=== PATIENT | male | born 1945 | race Caucasian/White ===

== ENCOUNTER 2017-01-07 12:07 | Inpatient (IN) | payer OTHER, MEDICARE ==
--- NOTE | ~2017-01-07 | HP ---
History And Physical [place] [address] [facility] [place]. [address] NAME: AMY MONROE : 49 STATUS : ADM IN PAT#: [id number] AGE: 71 ADM/REG DATE : 01/07/17 MR#: [id number] REPORT SERV DATE: 01/07/17 DICTATED BY: DELIO SHIN DATE: 01/07/17 REPORT STATUS : Draft TRANSCRIBED BY: MODFausto DATE: 01/07/17 DATE OF ADMISSION: 01/07/2017 CHIEF COMPLAINT: Syncope with low heart rate and blood pressure. HISTORY OF PRESENT ILLNESS: The patient is a very pleasant 71-year-old male with past medical history of coronary artery disease, chronic narcotic dependence with paroxysmal AFib, hypertension, COPD, questionable Parkinson, chronic back pain with multiple back surgeries, who was recently discharged approximately 48 hours ago under Cardiology Service for NSTEMI, requiring stent placement. These records are currently not available. The patient was doing well at home. However, today when he was with his family to get breakfast, although he is ambulatory to do ADLs. He had syncope episode and hit his head. Upon arrival, the patient was found to be hypotensive with systolics in the 60s, heart rates in the 40s to 50s. Family reports that he is typically hypertensive, although he does have occasional episodes where his heart rate is low. [facility] better control over the last few months. The patient did not have any new blood pressure med adjustments and discharged only new medication was Plavix family quite recalls. Additionally, the patient is noted to be in mild renal failure, symptoms of syncope, low blood pressure and heart rate was an isolated event today, but is still persistent, although blood pressure is improving with normal saline bolus and Decadron. The patient is still bradycardic. Denies any acute chest pain. Currently, symptoms are moderate. No pain radiating symptoms. No nausea, vomiting, diarrhea, fever, or chills. Symptoms are worsened with standing up and positional changes, relieved by lying down. Symptoms are slightly better and after the patient was given dopamine and atropine in EMS. REVIEW OF SYSTEMS: For other additional 10-point review of systems negative for that noted in the HPI. PAST MEDICAL HISTORY: Coronary artery disease with CABG history by Dr. 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 PAST SURGICAL HISTORY: CABG, multiple back surgeries, tonsillectomy, right knee surgery, appendectomy, and recent stent approximately 48 hours ago per family. SOCIAL HISTORY: with two children. Disabled secondary to back, . Retired corporate claims examiner. Quit smoking over 20 years ago. Rare alcohol. No illicits. With good family support at bedside. FAMILY HISTORY: Heart attack. ALLERGIES: TRAZODONE. HOME MEDICATIONS: Aspirin, atorvastatin, vitamin D, Plavix, docusate, Aricept, Neurontin, hydralazine, [place], Prinivil, Ativan, metoprolol, Remeron, MS Contin, Centrum, Prilosec, Risperdal, Zanaflex. History And Physical [address] [address] NAME: AMY MONROE : 47 STATUS : ADM IN [facility]#: [id number] AGE: 71 ADM/REG DATE : 01/07/17 MR#: [id number] REPORT SERV DATE: 01/07/17 DICTATED BY: DELIO SHIN DATE: 01/07/17 REPORT STATUS : Draft TRANSCRIBED BY: MIGUEL DATE: 01/07/17 PHYSICAL EXAMINATION: VITAL SIGNS: The patient's initial blood pressure in emergency room 79/50, has improved up to 114/54, temperature 97.4, pulse was initially 66, has been continuously in the 40s, respirations 18, O2 sats 96%, but requiring 5 L. GENERAL: No acute distress. Resting. EYES: No scleral icterus. EOMI. ENT: Nares patent. Tongue midline, but dry mucous membranes. RESPIRATORY: Clear to auscultation. No wheezes, rales. CV: Bradycardic. Mild systolic murmur. No rubs. GI: Soft, nontender, nondistended. Bowel sounds positive. : Deferred. MUSCULOSKELETAL: Moves extremities. SKIN: Warm and dry. Does have mild early bruise in right forehead. LYMPH: No cervical or supraclavicular lymphadenopathy. HEME: Mild early petechiae, bruise on forehead. NEURO: Alert and oriented. Moves all extremities. PSYCH: Appropriate mood and affect, pleasant. LABORATORY DATA: Cortisol 14.3, random. Procalcitonin negative. BUN and creatinine 33 and 1.85; however, was recently 15 and 1.11, potassium 3.6. Troponin 0.07, was previously up to 0.27. UDS noted for benzos and opioids. Portable chest no acute issues, lactate 2. Urinalysis grossly within normal limits. Brain without contrast. No acute processes. CBC: WBC count 10.9, H and H 14.2 and 42.3, platelets 181. INR 1.1. EKG normal sinus rhythm, rate of 65, prolonged QT at 472. ASSESSMENT: 1. Hypotension with syncope. 2. Recent non-ST elevation myocardial infarction. 3. Acute kidney injury. 4. Symptomatic bradycardia. 5. Hypoxia. 6. Questionable seizure history. 7. Chronic narcotic dependence with chronic pain syndrome. 8. Depression, anxiety history. PLAN: 1. For hypotension with syncope the patient was noted blood pressures in the 60s at home with bradycardia was given, atropine and dopamine in EMS arrival. Additionally has been bolused in the emergency room along with Decadron. Blood pressure has started to show improvement, but heart rate still remains fairly labile. The patient is typically hypertensive, has not had recent increase in blood pressure medications. Has actually been having decrease in blood pressure medications, still symptomatic. The patient in the presence of MARCY likely which is secondary to the hypotension is likely retaining additional medications. We will hold NOMAN inhibitor. We will hold additional hydralazine and metoprolol with holding parameters on pain medications until more stable. We will check a.m. cortisol. The patient did get Decadron in the emergency History And Physical [address] [address] NAME: AMY MONROE : 49 STATUS : ADM IN PAT#: [id number] AGE: 71 ADM/REG DATE : 01/07/17 MR#: [id number] REPORT SERV DATE: 01/07/17 DICTATED BY: DELIO SHIN DATE: 01/07/17 REPORT STATUS : Draft TRANSCRIBED BY: MIGUEL DATE: 01/07/17 room. If abnormal, may require stim test, the patient has had chronic debility and pain syndrome, multiple medications. 2. Recent NSTEMI, on Plavix and aspirin. We will notify Cardiology of repeat admission as possibility could be cardiogenic cause for syncope, hypotension, bradycardia, although the patient denies any chest pain or discomfort. Troponins are actually slightly better than most recent discharge. 3. MARCY, IV fluids. Blood pressure control. Differential includes hypotension, which is most likely etiology along with possible NOMAN inhibitor, but the patient did receive stent and could be component of VASYL. I will monitor with gentle IV fluids. If not improved, may require Renal consult. We will monitor clinically. 4. Bradycardia, hold beta-reji, was on 100 mg b.i.d. metoprolol. Previously before this prior to most recent admission was as high as 200 mg for blood pressure control. Holding parameters the patient has had bradycardia episodes even prior to admission. Has been given atropine, which is likely cause for normal sinus rhythm of 65, but is currently back down to the 40s. 5. Hypoxemia, follow up chest x-ray in a.m. 6. Seizure history, not on any medications. We will do seizure precautions. 7. Chronic narcotic dependence, hold p.r.n. 8. Depression, anxiety continue p.r.n. I have discussed the case thoroughly with ER team due to the patient's bradycardia, MARCY, labile blood pressure with requirements of atropine, dopamine, boluses, and Decadron. Additionally with recent NSTEMI with stent placement approximately 48 hours ago, possible adrenal component and hypoxemia. We will monitor in IMCU, although if vital signs stabilize may be able to be transferred either late tonight or early tomorrow morning based on clinical condition. All questions answered. The patient's family at bedside. Slightly guarded condition noted, discussed with family who is agreeable with plan. DDN/MODL Delio Shin MD / [id number] CC: Alyssa Holcomb Tracy
--- NOTE | ~2017-01-07 | CN ---
Consultation Report [facility] [address] [place]. [address] NAME: AMY MONROE : 49 STATUS : ADM IN PAT#: [id number] AGE: 71 ADM/REG DATE : 01/07/17 MR#: [id number] REPORT SERV DATE: 01/07/17 DICTATED BY: PRESLEY HEDRICK DATE: 01/07/17 REPORT STATUS : Draft TRANSCRIBED BY: MODL DATE: 01/07/17 CARDIOLOGY CONSULTATION DATE OF CONSULTATION: 01/07/2017 REASON FOR CONSULTATION: Hypotension and syncope. HISTORY OF PRESENT ILLNESS: The patient is a pleasant 71-year-old gentleman, with known history of coronary artery disease. He was recently admitted on Sunday with complaints of chest discomfort. He underwent cardiac catheterization, revealing an RCA lesion, status post stent placement by Dr. Rodriguez. He did well and went home on Sunday. Today, he awoke from sleep, was going to go get breakfast, became dizzy, lightheaded, and then passed out. He quickly regained consciousness, he had a normal sensorium. He presented to the emergency room where is found to be mildly bradycardic with heart rate of 50 beats per minute, and blood pressure between 70 and 80 systolic, diastolic of 50. He received 2 L of IV fluids in the emergency room. His beta reji dose which was metoprolol 100 mg p.o. b.i.d., is being reduced to 25 b.i.d. or held entirely depending on his systolic blood pressure and heart rate. He is afebrile. PAST MEDICAL HISTORY: Notable for coronary artery disease, status post CAB in 2012, history of postoperative atrial fibrillation, history of recent stent, with chest pain, and non- STEMI, with stent to the RCA, history of chronic pain syndrome, the patient takes home narcotic medications, history of COPD, history of tobacco, and alcohol abuse. HOME MEDICATIONS: Hydrocodone, APAP, lisinopril, Ativan, metoprolol 100 mg p.o. b.i.d., Remeron, MS Contin, Prilosec, Risperdal, and Zanaflex. FAMILY HISTORY: Noncontributory. Negative for premature coronary artery disease. SOCIAL HISTORY: Tobacco and alcohol abuse. Use of chronic narcotic agents for chronic pain. REVIEW OF SYSTEMS: As noted above. All other systems reviewed and negative. PHYSICAL EXAMINATION: VITAL SIGNS: Blood pressure of currently at 110/70, his pulse is currently 52, and respirations 16. GENERAL: Well developed, well nourished. HEENT: No icterus. Good dentition. NECK: Supple. No masses or thyromegaly LUNGS: Breathing comfortably. No rales or wheezes. COR: Normal S1, S2. No S3 or S4. No murmurs, clicks, rubs. No JVD ABD: Soft, nondistended, nontender, no hepatosplenomegaly. EXT: No clubbing, cyanosis or edema. Peripheral pulses 2+ or equal bilaterally. Consultation Report [address] [place]. [address] NAME: AMY MONROE : 49 STATUS : ADM IN [facility]#: [id number] AGE: 71 ADM/REG DATE : 01/07/17 MR#: [id number] REPORT SERV DATE: 01/07/17 DICTATED BY: PRESLEY HEDRICK DATE: 01/07/17 REPORT STATUS : Draft TRANSCRIBED BY: MIGUEL DATE: 01/07/17 SKIN: Warm and dry. No visible lesions. MS: Chest wall without deformity, no obvious clavicular fractures. NEURO/PSYCH: Oriented X3. No anxiety or depression. DIAGNOSTIC DATA: EKG shows sinus rhythm, heart rate 65 beats per minute. Nonspecific T-wave abnormalities in the inferior leads. Nonspecific in the lateral precordial leads as well. No evidence for ischemia or infarction. LABORATORY DATA: White count of 10.9, hematocrit 42, platelet count 181. Electrolytes within normal limits. Creatinine of 33, with a BUN of 1.85. TSH was 1.16. Cortisol is pending. IMPRESSION: Episode of syncope with hypotension. This is likely multifactorial. The patient takes multiple pain medications and other medications that may reduce his blood pressure. He also takes high dose beta reji. He had a recent cardiac stent, this is not appear to be consistent with myocardial ischemia. The patient is denying any chest pain. There is no evidence for acute ischemia on his EKG. His hemoglobin is within normal limits. He has responded to IV hydration. His heart rate is increasing. Again, I believe the bradycardia that he does have is out of proportion to the level of hypotension on admission, and is less likely to be a direct result of the bradycardia. Regardless however, I would recommend trying to reduce the patient's beta reji dose. He is currently taking metoprolol 100 mg twice a day. We are going to try to reduce this to 25 mg twice a day, but if his heart rate is less than 60 or systolic blood pressure is under 100, we will hold a dose entirely. He will continue on his aspirin and Plavix for his recent RCA stent placement. We will continue to monitor both his heart rates and blood pressure carefully. COLLIN/MODL Presley Hedrick M.D. / [id number] CC: Alyssa Holcomb TRACY
--- NOTE | ~2017-01-07 | DS ---
Discharge Summary [place] [address] [place]. [address] NAME: AMY MONROE : 49 STATUS : DIS IN PAT#: [id number] AGE: 71 ADM/REG DATE : 01/07/17 MR#: [id number] REPORT SERV DATE: 01/11/17 DICTATED BY: DATE: REPORT STATUS : Draft TRANSCRIBED BY: MODL DATE: 01/10/17 ADMISSION DATE: 01/07/2017 DISCHARGE DATE: 01/10/2017 DISCHARGE DIAGNOSES: 1. Hypotension. 2. Syncope secondary to hypotension. 3. Chronic obstructive pulmonary disease. 4. Chronic pain syndrome. 5. Gzo-[id number] elevation myocardial infarction, 01/04/2017. 6. Anxiety. 7. Hypertension. 8. Noncompliance with lab draws. CONSULTATION: Cardiology, Dr. Alcala. PROCEDURES AND IMAGIN. 01/07/2017, CT of the brain without contrast showed stable moderate cerebral atrophy without acute intracranial process. 2. 01/07/2017, portable chest x-ray showed no acute cardiac decompensation. HOSPITAL COURSE: The patient is a very pleasant 71-year-old male with multiple comorbidities. Please see H and P by Dr. Olman Ferris on 01/07/2017. The patient had recently been discharged 48 hours ago for a non-STEMI, which required stent placement and was found hypotensive. In discussion with the patient, the patient's heart rate normally is in the 50s and 60s. The patient's orthostatic blood pressures have been within normal limits, lying down 150/82, sitting 152/88, standing 162/92, heart rate has been from 52-65. Please see labs upon admission and urine drug screen. The patient has had negative blood cultures during his stay. His cortisol level was 14.3. The patient's beta blockers have been decreased from 100 mg b.i.d. to 25 mg b.i.d. The patient did have a urine drug screen that was positive for benzodiazepines and opiates, and the patient is on chronic pain medications. I started care of this patient on 01/09/2017. Please see consultation note by Dr. Alcala on 01/07/2017. Throughout his hospitalization, the patient has denied any complaint of lightheadedness or vertigo and has had no difficulty with balance. PHYSICAL EXAMINATION: VITAL SIGNS: Blood pressure 174/98, temperature 96.8, heart rate is 50, O2 saturation is 97% on room air. HEENT: Head is atraumatic, normocephalic. Pupils are equal, round, and reactive to light. Sclerae are clear and nonicteric. Good dentition. NECK: Supple with no palpable lymphadenopathy or thyromegaly. Neck veins are flat. CARDIAC: The patient is in a slow regular rhythm in the 50s. LUNGS: Lung sounds are clear to auscultation with normal respiratory effort. GI: Abdomen is soft and nontender with active bowel sounds in all four quadrants and no palpable organomegaly. Last bowel movement was 01/08/2017. EXTREMITIES: No significant edema, clubbing, or cyanosis. Pulses are present and palpable Discharge Summary [address] [address] NAME: AMY MONROE : 49 STATUS : DIS IN PAT#: [id number] AGE: 71 ADM/REG DATE : 01/07/17 MR#: [id number] REPORT SERV DATE: 01/11/17 DICTATED BY: DATE: REPORT STATUS : Draft TRANSCRIBED BY: MODL DATE: 01/10/17 bilaterally. MUSCULOSKELETAL: The patient moves all extremities x4. He is ambulatory without assistance. SKIN: Skin is warm and dry with normal color and turgor. NEURO/PSYCH: The patient is alert and oriented x3, pleasant, cooperative. Cranial nerves II through XII are grossly intact. DISCHARGE MEDICATIONS: Aspirin 81 mg daily, atorvastatin 40 mg daily, Clopidogrel 75 mg daily, vitamin D 1000 units twice daily, docusate sodium 100 mg twice daily, Aricept 10 mg daily, Neurontin 600 mg three times daily, hydrocodone 10/325 three times daily, Lorazepam 0.5 mg twice daily, mirtazapine 15 mg at bedtime, MS Contin 15 mg every 12 hours, metoprolol 25 mg twice daily, omeprazole 20 mg twice daily, Risperdal 2 mg daily, lisinopril 20 mg daily, hydralazine 10 mg three times daily, tizanidine 4 mg three times daily as needed for muscle spasms, and multivitamin. ALLERGIES: THE PATIENT HAS ALLERGY TO TRAZODONE, WHICH CAUSES DIFFICULTY BREATHING. THE PATIENT IS TO FOLLOW UP WITH HIS PCP IN ONE WEEK. SHOULD THE PATIENT DEVELOP ANY MORE SYMPTOMS OR DIFFICULTY BREATHING, THE PATIENT IS TO CALL HIS PCP OR TO PRESENT TO THE ER. APPROXIMATELY, 25 MINUTES HAS BEEN SPENT COORDINATING DISCHARGE CARE OF THIS PATIENT, INCLUDING [id number] ENCOUNTER AND SUMMARIZATION OF THE DISCHARGE. LOUISE/GEREMIASL Khadijah Sheppard NP / [id number] CC: MD ADELINE Benitez TRACY
[~2017-01-07 12:07] MED LIST: *UNABLE1; ACET500CAP PO; ALD250 PO; ALD500 PO; ALDOMET PO; APRES10B PO; APRES50 PO; ARICEPT10 PO; ASAB PO; ATIVAN2 MG PO; ATV.5 PO; BC POWDER PO; CAT1 PO; D100 PO; DCN100 PO; FLAG500TAB PO; FLEX PO; HALCION0.25 MG PO; IRON325 MG PO; L20 PO; LEVAQUIN750 MG PO; LIPITOR20 PO; LIPITOR40; LISINOPRIL40 MG PO; LOP100 PO; LOP50 PO; LORTAB 5 PO; MAX25 PO; METHYLDOPA250 MG OR; MOBIC 7.5 MG PO; MOBIC15 MG PO; MSCONT15 PO; NEUR300 PO; NORCO1 TA1 PO; NORCO1 TAB PO; PCET PO; PRILO PO; PROTONIX PO; REM15 PO; REMERON45 MG PO; RISP0.5 PO; RISP1 PO; RISP2 PO; SOMA 350 MG PO; SOMATAB PO; STOOL SOFTEN100 MG PO; ULTRAM50 PO; V5 PO; ZANTAC150 MG PO
[2017-01-07 12:43] LABS: BASOPHILS 0.2 %; BASOPHILS ABSOLUTE 0.02 10/3/uL (0.0-0.16); EOSINOPHILS 1.3 %; EOSINOPHILS ABSOLUTE 0.14 10/3/uL (0.0-0.53); HEMATOCRIT 42.3 % (40.0-51.0); HEMOGLOBIN 14.2 g/dL (13.6-17.8); IMMATURE GRANULOCYTES 0.2 %; IMMATURE GRANULOCYTES ABSOLUTE 0.02 10/3/uL (0.0-0.11); LYMPHOCYTES 27.5 %; LYMPHOCYTES ABSOLUTE 2.98 10/3/uL (0.67-4.30); MEAN CORPUS HGB CONC 33.6 g/dL (32.0-36.0); MEAN CORPUSCULAR HEMOGLOB 32.2 pg (26.0-34.0); MEAN CORPUSCULAR VOLUME 95.9 fL (80-100); MEAN PLATELET VOLUME 10.4 fL (9.2-13.0); MONOCYTES 10.9 %; MONOCYTES ABSOLUTE 1.18 10/3/uL (0.21-1.20); NEUTROPHILS 59.9 %; NEUTROPHILS ABSOLUTE 6.51 10/3/uL (2.02-8.40); PLATELET COUNT 181 10/3/uL (150-400); RED CELL COUNT 4.41 10/6/uL (4.7-6.1)
[2017-01-07 12:44] LABS: ER CBC TAT 0 Hrs 07 Mins; MANUAL DIFF NO %; WHITE BLOOD CELLS 10.9 10/3/uL (4.5-10.5)
[2017-01-07 12:53] LABS: INTERNATIONAL NORMAL RATI 1.1 UNITS (-); PARTIAL THROMBO TIME 30.3 SEC (22.5-37.2); PROTIME (NOT ORD) 14.1 SEC (12.0-14.5)
[2017-01-07 12:59] LABS: ASCORBIC ACID (UR NOT ORDER) NEG (NEG); BILIRUBIN, URINE NEGATIVE (NEG); ER URINALYSIS TAT 0 Hrs 12 Mins; KETONE, URINE NEGATIVE (NEG); LEUKOCYTE ESTERASE(NOT OR NEG (NEG); NITRITE (URINE) NEG (NEG); WBC (NOT ORDERED) (RFLEX) 3 (0-5)
[2017-01-07 13:07] LABS: A/G RATIO 1.1 (0.7-1.9); ALBUMIN 3.3 G/DL (3.5-5.0); ALKALINE PHOSPHATASE 72 U/L (45-117); BUN (BLOOD UREA NITROGEN) 33 MG/DL (6-23); CALCIUM, SERUM 8.5 MG/DL (8.5-10.4); CHLORIDE, SERUM 106 MMOL/L (96-112); CO2 (CARBON DIOXIDE) 26 MMOL/L (24-34); CREATININE 1.85 MG/DL (0.70-1.30); GFR AFRICAN AMERICAN 42 ML/MIN (>=60); GFR NON AFRICAN AMERICAN 36 ML/MIN (>=60); GLUCOSE, SERUM 103 MG/DL (60-99); POTASSIUM, SERUM 3.6 MMOL/L (3.5-5.3); SALICYLATE 5.9 MG/DL (-); SGOT(AST) 16 U/L (5-40); SGPT(ALT) 26 U/L (5-65); SODIUM, SERUM 142 MMOL/L (135-148); TOTAL BILIRUBIN 0.7 MG/DL (0-1.2); TOTAL PROTEIN 6.3 G/DL (6.0-8.5)
[2017-01-07 13:08] LABS: ACETAMINOPHEN LEVEL (TYLENOL) < 2.0 MCG/ML (10.0-20.0); ALCOHOL < 10 MG/DL (0); TROPONIN I 0.07 NG/ML (<0.05)
[2017-01-07 13:13] LABS: BENZODIAZEPINES (NOT ORD) POS (NEG); PHENCYCLIDINE(PCP) NEG (NEG)
[2017-01-07 13:14] LABS: AMPHETAMINES (NOT ORD) NEG (NEG); BARBITURATES (NOT ORDERED NEG (NEG); CANNABINOIDS (THC) NEG (NEG); COCAINE (NOT ORDERED) NEG (NEG); OPIATES POS (NEG); TRICYCLICS NEG (NEG)
[2017-01-07 13:37] LABS: PROCALCITONIN <0.05 ng/mL (<0.5)
[2017-01-07] MEDS ORDERED: REM15 PO (13:51)
[2017-01-07] MEDS ORDERED: RISP2 PO (13:52)
[2017-01-07] MEDS ORDERED: LOP100 PO (13:52)
[2017-01-07] MEDS ORDERED: PRIN20 PO (13:52)
[2017-01-07] MEDS ORDERED: ATV.5 PO (13:53)
[2017-01-07] MEDS ORDERED: D.O.S.100 MG PO (13:53)
[2017-01-07] MEDS ORDERED: ARICEPT10 PO (13:54)
[2017-01-07] MEDS ORDERED: ASAB PO (13:54)
[2017-01-07] MEDS ORDERED: NORCO1 TAB PO (13:54)
[2017-01-07] MEDS ORDERED: MSCONT15 PO (13:54)
[2017-01-07] MEDS ORDERED: APRES10B PO (13:55)
[2017-01-07] MEDS ORDERED: VITAMIN D1000 UNI1 PO (13:55)
[2017-01-07] MEDS ORDERED: NEUR600 PO (13:56)
[2017-01-07] MEDS ORDERED: PLAVIX PO (13:56)
[2017-01-07] MEDS ORDERED: PRILO PO (13:56)
[2017-01-07] MEDS ORDERED: ZANAFLEX 4 MG TA4 MG PO (13:56)
[2017-01-07] MEDS ORDERED: LIPITOR40 PO (13:56)
[2017-01-07] MEDS ORDERED: CENTRUM PO (13:57)
[2017-01-07 18:35] LABS: PHOSPHORUS, SERUM 4.2 MG/DL (2.5-4.5)
[2017-01-08 04:45] LABS: BASOPHILS 0 %; EOSINOPHILS 0.1 %; EOSINOPHILS ABSOLUTE 0.01 10/3/uL (0.0-0.53); HEMATOCRIT 40.6 % (40.0-51.0); HEMOGLOBIN 13.8 g/dL (13.6-17.8); IMMATURE GRANULOCYTES 0.2 %; IMMATURE GRANULOCYTES ABSOLUTE 0.02 10/3/uL (0.0-0.11); LYMPHOCYTES 18.6 %; LYMPHOCYTES ABSOLUTE 1.67 10/3/uL (0.67-4.30); MEAN CORPUSCULAR HEMOGLOB 32.2 pg (26.0-34.0); MEAN CORPUSCULAR VOLUME 94.9 fL (80-100); MEAN PLATELET VOLUME 10.6 fL (9.2-13.0); MONOCYTES ABSOLUTE 0.81 10/3/uL (0.21-1.20); NEUTROPHILS 72.1 %; NEUTROPHILS ABSOLUTE 6.46 10/3/uL (2.02-8.40); PLATELET COUNT 182 10/3/uL (150-400); RBC DISTRIBUTION WIDTH 12.7 % (12.0-16.0); RED CELL COUNT 4.28 10/6/uL (4.7-6.1)
[2017-01-08 04:47] LABS: MANUAL DIFF NO %
[2017-01-08 05:11] LABS: ALBUMIN 3.6 G/DL (3.5-5.0); CHLORIDE, SERUM 107 MMOL/L (96-112); CO2 (CARBON DIOXIDE) 25 MMOL/L (24-34); GLUCOSE, SERUM 117 MG/DL (60-99); POTASSIUM, SERUM 4.1 MMOL/L (3.5-5.3); SODIUM, SERUM 142 MMOL/L (135-148); TROPONIN I 0.04 NG/ML (<0.05)
[2017-01-08 05:13] LABS: BUN (BLOOD UREA NITROGEN) 20 MG/DL (6-23); CREATININE 0.86 MG/DL (0.70-1.30); GFR AFRICAN AMERICAN 103 ML/MIN (>=60); GFR NON AFRICAN AMERICAN 88 ML/MIN (>=60); PHOSPHORUS, SERUM 2.6 MG/DL (2.5-4.5)
[2017-01-10 04:36] LABS: BASOPHILS 0.1 %; BASOPHILS ABSOLUTE 0.01 10/3/uL (0.0-0.16); EOSINOPHILS 3.5 %; EOSINOPHILS ABSOLUTE 0.27 10/3/uL (0.0-0.53); HEMOGLOBIN 13.6 g/dL (13.6-17.8); IMMATURE GRANULOCYTES 0.3 %; IMMATURE GRANULOCYTES ABSOLUTE 0.02 10/3/uL (0.0-0.11); LYMPHOCYTES ABSOLUTE 3.03 10/3/uL (0.67-4.30); MEAN CORPUSCULAR HEMOGLOB 31.9 pg (26.0-34.0); MEAN CORPUSCULAR VOLUME 93.7 fL (80-100); MEAN PLATELET VOLUME 10.4 fL (9.2-13.0); MONOCYTES 9.1 %; MONOCYTES ABSOLUTE 0.71 10/3/uL (0.21-1.20); NEUTROPHILS ABSOLUTE 3.72 10/3/uL (2.02-8.40); PLATELET COUNT 192 10/3/uL (150-400); RBC DISTRIBUTION WIDTH 12.4 % (12.0-16.0); RED CELL COUNT 4.27 10/6/uL (4.7-6.1); WHITE BLOOD CELLS 7.8 10/3/uL (4.5-10.5)
[2017-01-10 04:37] LABS: MANUAL DIFF NO %
[2017-01-10 04:47] LABS: CALCIUM, SERUM 8.6 MG/DL (8.5-10.4); CHLORIDE, SERUM 106 MMOL/L (96-112); CO2 (CARBON DIOXIDE) 28 MMOL/L (24-34); GFR AFRICAN AMERICAN 112 ML/MIN (>=60); GFR NON AFRICAN AMERICAN 96 ML/MIN (>=60); GLUCOSE, SERUM 104 MG/DL (60-99); POTASSIUM, SERUM 3.4 MMOL/L (3.5-5.3); SODIUM, SERUM 143 MMOL/L (135-148); TROPONIN I <0.02 NG/ML (<0.05)
[2017-01-10 04:51] LABS: BUN (BLOOD UREA NITROGEN) 15 MG/DL (6-23)
[2017-01-10] MEDS ORDERED: LOP25 PO (15:34)
== END 2017-01-10 17:42 | disposition home or self-care (01) | DRG 281 ==
LOC: ER 12:07 → IMCU 16:04 → 7NO 01-08 15:43
PROVIDERS: Hospitalist; Nurse Practitioner Family; Student in an Organized Health Care Education/Training Program
DX: I95.2 Hypotension due to drugs (principal); I21.4 Non-ST elevation (NSTEMI) myocardial infarction; N17.9 Acute kidney failure, unspecified; F11.20 Opioid dependence, uncomplicated; R00.1 Bradycardia, unspecified; I48.0 Paroxysmal atrial fibrillation; I25.10 Atherosclerotic heart disease of native coronary artery without angina pectoris; J44.9 Chronic obstructive pulmonary disease, unspecified; I10 Essential (primary) hypertension; I25.2 Old myocardial infarction; G89.4 Chronic pain syndrome; F32.9 Major depressive disorder, single episode, unspecified; F41.9 Anxiety disorder, unspecified; R09.02 Hypoxemia; T44.7X5A Adverse effect of beta-adrenoreceptor antagonists, initial encounter; Z79.02 Long term (current) use of antithrombotics/antiplatelets; Z95.5 Presence of coronary angioplasty implant and graft; Z87.891 Personal history of nicotine dependence; Z79.82 Long term (current) use of aspirin; Z79.891 Long term (current) use of opiate analgesic
CPT/HCPCS: 36600; 70450; 71010; 80048; 80053; 80069; 80305; 80307; 81001; 82330; 82533; 82570; 82803; 82947; 83605; 83735; 83880; 83935; 84100; 84132; 84145; 84295; 84300; 84443; 84484; 85014; 85025; 85610; 85730; 87040; 87641; 93005; 96361; 96374; 99285; A9270-GY; J0360; J1170; J1610